=== PATIENT | male | born 1950 | race African-American/Black ===

== ENCOUNTER → 2017-09-17 | Outpatient (CLI) | payer MEDICARE, OTHER ==
[2017-09-17 17:32] LABS: ABSOLUTE BASOPHILS # (AUTO) 0.1 10^3/uL (0.0-0.2); ABSOLUTE LYMPHOCYTES (AUTO) 0.6 10^3/uL (0.5-4.7); ABSOLUTE MONOCYTES (AUTO) 0.8 10^3/uL (0.1-1.4); ABSOLUTE NEUT (AUTO) 4.6 10^3/uL (1.7-8.2); BASOPHILS % (AUTO) 1.3 % (0-2); EOSINOPHILS % (AUTO) 0.5 % (0-6); HEMATOCRIT 48.2 % (37.9-51.0); LYMPHOCYTES % (AUTO) 10.1 % (13-45); MEAN CORPUSCULAR HEMOGLOBIN 25.7 pg (27.0-33.4); MEAN CORPUSCULAR HGB CONC 33.1 g/dL (32.0-36.0); MEAN CORPUSCULAR VOLUME 78 fl (80-97); PLATELET COUNT 503 10^3/uL (150-450); RED CELL DISTRIBUTION WIDTH 18.5 % (11.5-14.0); SEGMENTED NEUTROPHILS % (AUTO) 75.1 % (42-78); TOTAL CELLS COUNTED % (AUTO) 100 %
[2017-09-17 17:41] LABS: ALANINE AMINOTRANSFERASE 53 U/L (21-72); ALKALINE PHOSPHATASE 82 U/L (38-126); ANION GAP 15 (5-19); ASPARTATE AMINO TRANSFERASE 50 U/L (17-59); BILIRUBIN,DIRECT 0.5 mg/dL (0.0-0.4); BILIRUBIN,TOTAL 0.8 mg/dL (0.2-1.3); BLOOD UREA NITROGEN 40 mg/dL (7-20); CALCIUM 9.4 mg/dL (8.4-10.2); CARBON DIOXIDE 24 mmol/L (22-30); CHLORIDE 97 mmol/L (98-107); GLUCOSE 99 mg/dL (75-110); POTASSIUM 5.8 mmol/L (3.6-5.0); SODIUM 136.4 mmol/L (137-145); TOTAL PROTEIN 7.3 g/dL (6.3-8.2)
[2017-09-17 18:18] LABS: ERYTHROCYTE SEDIMENTATION RATE 16 mm/hr (0-20)
[2017-09-17 18:31] LABS: WHITE BLOOD COUNT 6.1 10^3/uL (4.0-10.5)
== END ==
LOC: OD 16:18
PROVIDERS: ATTEND Family Medicine
DX: I10 Essential (primary) hypertension (principal); N28.9 Disorder of kidney and ureter, unspecified; R50.9 Fever, unspecified
CPT/HCPCS: 36415; 80053; 85025; 85652; 86038; 86430; 86701; 87040

== ENCOUNTER 2017-09-18 20:37 | Emergency (ER) | payer MEDICARE, OTHER ==
[2017-09-18] MEDS ORDERED: IPRATROPIUM/ALBUTEROL 0.5-2.5 MG/3 ML AMPUL NEB ONE (22:38)
[2017-09-18] MEDS ORDERED: DEXAMETHASONE SOD PHOS INJ 10 MG/1 ML VIAL IV ONE (22:38)
--- NOTE | 2017-09-18 22:40 | ER Document Report ---
ED General - General Chief Complaint: Shortness Of Breath Stated Complaint: SHORTNESS OF BREATH Time Seen by Provider: 09/18/17 22:19 TRAVEL OUTSIDE OF THE [place] IN LAST 30 DAYS: No - HPI Notes: Patient is a 67-year-old male who presents to the ED via EMS complaining of fever, chills, occasional dry nonproductive cough, intermittent shortness of breath with exertion 1.5 weeks. Patient states that he was evaluated a week ago and placed on an antibiotic which he cannot remember the name of. Patient states that he was also evaluated by his primary care doctor yesterday who took blood and blood cultures and set up an appointment for infectious disease tomorrow. Patient states that he started having fever and chills again today so he went to an urgent care and they saw a temperature of 103 so they sent him to the emergency department for further evaluation and management. Patient was given 1000 mg of Tylenol at that time. Patient states that he feels overall "okay." Patient was also noted to have an O2 saturation of 92% sweeps he was placed on 2 L of oxygen via nasal cannula. Patient denies any other significant cardio pulmonary medical history. He has a history of hypertension and gout. Patient is not on any blood thinners aside from a baby aspirin daily. He denies any smoking, IV drug use, diabetes, cancer, previous DVT/PE, hormone use, prolonged immobilization, recent trauma/surgery. Patient states that he is still eating and drinking without difficulties, but does have a decreased p.o. intake. He is urinating normally and having normal bowel movements. Patient had a temperature of 100.3 when vitals were taken by our nursing staff after arrival. Denies any drug allergies. Denies any headache, neck pain, changes in vision/speech/mentation/hearing, URI, sore throat, chest pain, palpitations, syncope, wheeze, dyspnea, abdominal pain, nausea/vomiting/ diarrhea, urinary retention, dysuria, hematuria, or rash. - Related Data Allergies/Adverse Reactions: No Known Allergies Allergy (Unverified 07/28/13 14:37) Past Medical History - Social History Smoking Status: Former Smoker Chew tobacco use (# tins/day): No Frequency of alcohol use: None Drug Abuse: None Family History: Reviewed & Not Pertinent Patient has suicidal ideation: No Patient has homicidal ideation: No - Past Medical History Cardiac Medical History: Reports: Hx Hypertension Denies: Hx Heart Attack Pulmonary Medical History: Denies: Hx Asthma Neurological Medical History: Denies: Hx Cerebrovascular Accident, Hx Seizures Renal/ Medical History: Denies: Hx Peritoneal Dialysis GI Medical History: Denies: Hx Hepatitis, Hx Hiatal Hernia, Hx Ulcer Infectious Medical History: Denies: Hx Hepatitis Past Surgical History: Denies: Hx Open Heart Surgery, Hx Pacemaker Review of Systems - Review of Systems -: Yes All other systems reviewed and negative Physical Exam - Vital signs Vitals: Resp Pulse Ox 19 96 09/18/17 20:44 09/18/17 20:44 - Notes Notes: PHYSICAL EXAMINATION: GENERAL: Well-appearing, well-nourished and in no acute distress. A&Ox4. Answers questions appropriately. HEAD: Atraumatic, normocephalic. EYES: Pupils equal round and reactive to light, extraocular movements intact, sclera anicteric, conjunctiva are normal. ENT: Nares patent and without discharge. oropharynx clear without exudates. No tonsilar hypertrophy or erythema. Moist mucous membranes. No sinus tenderness. NECK: Normal range of motion, supple without lymphadenopathy LUNGS: Breath sounds clear to auscultation bilaterally and equal. No wheezes rales or rhonchi. HEART: Regular rate and rhythm without murmurs, rubs, gallops. ABDOMEN: Soft, nontender, nondistended abdomen. No guarding, no rebound. No masses appreciated. Normal bowel sounds present. No CVA tenderness bilaterally. Musculoskeletal: FROM to passive/active. Strength 5+/5. Coni neg b/l. Extremities: No cyanosis, clubbing, or edema b/l. Peripheral pulses 2+. Capillary refill less than 3 seconds. NEUROLOGICAL: Cranial nerves grossly intact. Normal speech, normal gait. Normal sensory, motor exams PSYCH: Normal mood, normal affect. SKIN: Warm, Dry, normal turgor, no rashes or lesions noted. Course - Re-evaluation Re-evalutation: 09/19/17 00:36 Reviewed current labs and imaging with Dr. Mejia. Pt is perfusing at 94-98% on RA at this time. He has no new concerns or complaints. CBC shows a left shift. CMP shows CKD with Cr 1.72 (unknown previously to patient) GFR of 49. K+ of 5.7 w/o EKG changes. CXR shows small effusion left side. We will obtain a CTA of the chest to further evaluate. Fluids started. BC pending. Lactic acid/BNP unremarkable. Cardiac enzymes x2/EKG unremarkable. 09/19/17 03:20 CT showed probable pneumonia right lower lobe versus atelectasis, but patient's presentation lab work favors pneumonia at this time. Reviewed again with Dr. Mejia, we will start IV antibiotics at this time. Pt has maintained O2 >94% on RA and ambulated and maintained O2 on RA >95%. Patient is nontoxic- appearing and appears well overall. Patient has been given 2 L normal saline as well as an extra albuterol neb treatment. Rocephin and Zithromax IV started. Patient is tolerating p.o. without any difficulties. I did review this with our hospitalist, Dr. Wienstein, who advised that we are doing everything appropriately and based on his vitals and presentation that he can remain outpatient with f/u with Infectious Disease tomorrow. I did review this with the family and patient who are in agreement with this plan. Low suspicion for any ACS, pneumothorax, pericarditis, dissection, respiratory compromise, severe dehydration, sepsis, meningitis, or other systemic emergent condition at this time. Patient is aware that his condition can change from initial presentation and he needs to monitor symptoms closely and seek medical attention for any acute changes. Recommend conservative measures for symptoms. Recheck with your I.D. provider tomorrow as scheduled. Call your PCM tomorrow as well. Return to the ED with any worsening/concerning symptoms otherwise as reviewed in discharge. Patient is in agreement. 09/19/17 04:00 Pt has no new concerns or complaints. Antibiotics running. Plan for discharge at completion. Vitals acceptable. D/c instructions as above. - Vital Signs Vital signs: Temp Pulse Resp BP Pulse Ox 97.8 F 18 106/83 95 09/19/17 04:31 09/19/17 02:01 09/19/17 04:31 09/19/17 04:31 - Laboratory Result Diagrams: 09/18/17 20:45 09/18/17 20:45 Laboratory results interpreted by me: 09/18/17 09/18/17 09/18/17 20:45 20:45 20:45 RBC 6.22 H MCV 77 L MCH 25.3 L RDW 18.4 H Plt Count 578 H Seg Neuts % (Manual) 80 H Band Neutrophils % 10 H Lymphocytes % (Manual) 3 L Abs Lymphs (Manual) 0.2 L VBG pH 7.49 H VBG pCO2 26.1 L VBG HCO3 19.6 L Sodium 131.5 L Potassium 5.7 H Chloride 97 L Carbon Dioxide 21 L BUN 42 H Creatinine 1.72 H Est GFR ( Amer) 49 L Est GFR (Non-Af Amer) 40 L Glucose 112 H Direct Bilirubin 0.5 H Urine Ketones Urine Blood 09/18/17 23:07 RBC MCV MCH RDW Plt Count Seg Neuts % (Manual) Band Neutrophils % Lymphocytes % (Manual) Abs Lymphs (Manual) VBG pH VBG pCO2 VBG HCO3 Sodium Potassium Chloride Carbon Dioxide BUN Creatinine Est GFR ( Amer) Est GFR (Non-Af Amer) Glucose Direct Bilirubin Urine Ketones TRACE H Urine Blood SMALL H Discharge - Discharge Clinical Impression: Pneumonia Qualifiers: Pneumonia type: due to unspecified organism Laterality: right Lung location: lower lobe of lung Qualified Code(s): J18.1 - Lobar pneumonia, unspecified organism Condition: Stable Disposition: HOME, SELF-CARE Instructions: Pneumonia ([facility]) Additional Instructions: Maintain adequate fluid intake Take meds as directed tylenol/ibuprofen as needed over the counter cold medication as needed for symptoms Humidified air may help Wash your hands regularly Wear a mask when coughing F/u: With your infectious disease provider tomorrow as scheduled. Call your PCM as well tomorrow. Return to the ED with any fever, worsening pain, chest pain, palpitations, syncope, worsening LUGO, neck pain/stiffness, shortness of breath, wheezing, drooling, trouble swallowing/breathing, abdominal pain, n/v/d, rash, or worsening/concerning symptoms otherwise. Prescriptions: Levofloxacin [Levaquin 750 mg Tablet] 750 mg PO DAILY #5 tablet Referrals: HENRY GUILLERMO MD [Primary Care Provider] - Follow up tomorrow Disease, Infectious [Other] - Follow up tomorrow
[2017-09-18 22:42] LABS: VENOUS BLOOD BASE EXCESS -1.8 mmol/L; VENOUS BLOOD HCO3 19.6 mmol/L (20-32); VENOUS BLOOD PCO2 26.1 mmHg (35-63); VENOUS BLOOD PH 7.49 (7.30-7.42)
[2017-09-18 22:50] LABS: ALANINE AMINOTRANSFERASE 59 U/L (21-72); ALBUMIN 3.9 g/dL (3.5-5.0); ALKALINE PHOSPHATASE 97 U/L (38-126); ANION GAP 14 (5-19); ASPARTATE AMINO TRANSFERASE 51 U/L (17-59); BILIRUBIN,DIRECT 0.5 mg/dL (0.0-0.4); BILIRUBIN,TOTAL 0.8 mg/dL (0.2-1.3); BLOOD UREA NITROGEN 42 mg/dL (7-20); CALCIUM 9.4 mg/dL (8.4-10.2); CARBON DIOXIDE 21 mmol/L (22-30); CHLORIDE 97 mmol/L (98-107); GLUCOSE 112 mg/dL (75-110); HEMATOCRIT 48.1 % (37.9-51.0); HEMOGLOBIN 15.8 g/dL (13.5-17.0); MEAN CORPUSCULAR HEMOGLOBIN 25.3 pg (27.0-33.4); MEAN CORPUSCULAR HGB CONC 32.8 g/dL (32.0-36.0); MEAN CORPUSCULAR VOLUME 77 fl (80-97); PLATELET COUNT 578 10^3/uL (150-450); POTASSIUM 5.7 mmol/L (3.6-5.0); RED BLOOD COUNT 6.22 10^6/uL (4.35-5.55); RED CELL DISTRIBUTION WIDTH 18.4 % (11.5-14.0); SODIUM 131.5 mmol/L (137-145); TOTAL PROTEIN 7.1 g/dL (6.3-8.2); WHITE BLOOD COUNT 7.9 10^3/uL (4.0-10.5)
[2017-09-18 23:08] LABS: CREATINE KINASE MB 0.36 ng/mL (<4.55); TROPONIN I 0.016 ng/mL
[2017-09-18 23:10] LABS: ABSOLUTE LYMPHOCYTES# (MANUAL) 0.2 10^3/uL (0.5-4.7); ABSOLUTE MONOCYTES # (MANUAL) 0.4 10^3/uL (0.1-1.4); ABSOLUTE NEUTROPHILS# (MANUAL) 7.1 10^3/uL (1.7-8.2); BAND NEUTROPHILS % (MANUAL) 10 % (3-5); BASOPHILS % (MANUAL) 1 % (0-2); EOSINOPHILS % (MANUAL) 1 % (0-6); LYMPHOCYTES % (MANUAL) 3 % (13-45); MONOCYTES % (MANUAL) 5 % (3-13); SEGMENTED NEUTROPHILS % (MAN) 80 % (42-78); TOTAL CELLS COUNTED 100
[2017-09-18 23:11] LABS: ANISOCYTOSIS 1+
[2017-09-18 23:12] LABS: PLATELET COMMENT ADEQUATE; PLATELET LARGE PRESENT; TOXIC GRANULATION SLIGHT
[2017-09-18 23:19] LABS: APPEARANCE,URINE CLEAR; BILIRUBIN,URINE NEGATIVE (NEGATIVE); COLOR,URINE YELLOW; GLUCOSE, URINE NEGATIVE (NEGATIVE); KETONES,URINE TRACE mg/dL (NEGATIVE); LEUKOCYTE ESTERASE,URINE NEGATIVE (NEGATIVE); NITRITE,URINE NEGATIVE (NEGATIVE); PROTEIN,URINE NEGATIVE (NEGATIVE); URINE SPECIFIC GRAVITY 1.016; UROBILINOGEN,URINE NEGATIVE mg/dL (<2.0)
--- NOTE | 2017-09-19 00:18 | RADIOLOGY REPORT (SQ) ---
EXAM DESCRIPTION: CHEST 2 VIEWS CLINICAL HISTORY: 67 years Male, cough, fever COMPARISON: None. NUMBER OF VIEWS/TECHNIQUE: 2, PA and Lateral LIMITATIONS: None. FINDINGS: Normal lung volume and small right middle lobar and left basilar atelectasis or scar. Small blunting-effusion of the left costophrenic angle. Prominent interstitium. Normal cardiac silhouette. Intact bony thorax. IMPRESSION: Small atelectasis-scar. Possible small left effusion.
[2017-09-19] MEDS ORDERED: NORMAL SALINE 1000 ML 1,000 ML IV ONE ×2 (00:27→02:12)
--- NOTE | 2017-09-19 02:20 | RADIOLOGY REPORT (SQ) ---
EXAM DESCRIPTION: CTA CHEST CLINICAL HISTORY: 67 years Male, EW[place], intermittent fever COMPARISON: CR, same day. TECHNIQUE: IV contrast. Multiplanar reformat. This exam was performed according to our departmental dose-optimization program, which includes automated exposure control, adjustment of the mA and/or kV according to patient size and/or use of iterative reconstruction technique. FINDINGS: There is inadequate enhancement of the pulmonary arterial system measuring 154 HU significantly decreasing sensitivity of this exam. There is nonspecific prominence of the right ventricle. CTA appearance of the thoracic aorta is normal. Moderate bandlike opacity of the right lower lobe may indicate atelectasis or pneumonia. Small bilateral lower lobar and left basilar atelectasis/scar. Mild/moderate splenomegaly partially imaged. Small calcified granuloma in the right midlung field. Inferior neck, axillae, mediastinum, airway, lymphatics, upper abdomen, and musculoskeleton appear otherwise unremarkable. IMPRESSION: 1. There is inadequate enhancement of the pulmonary arterial system significantly decreasing sensitivity of this exam. There is nonspecific prominence of the right ventricle. Recommend repeat, alternative, or surveillance investigation. 2. Bandlike opacity of the right lower lobe may indicate atelectasis or pneumonia. 3. Splenomegaly.
[2017-09-19] MEDS ORDERED: CEFTRIAXONE 1 GM/D5W RTU 1 GM/50 ML RTUPB IV ONE (02:26)
[2017-09-19] MEDS ORDERED: AZITHROMYCIN INJ 500 MG VIAL IV ONE (02:26)
[2017-09-19] MEDS ORDERED: ALBUTEROL SULFATE 0.083% NEB 2.5 MG/3 ML AMPUL NEB ONE (02:27)
[2017-09-19] MEDS ORDERED: SODIUM POLYSTYRENE SULFONATE 15 GM/60 ML PO ONE (02:27)
[2017-09-19] MEDS ORDERED: CEFTRIAXONE INJ 1000 MG VIAL ONE (03:53)
[2017-09-19 04:37] VITALS: BP 106/83
--- NOTE | 2017-09-19 07:55 | EKG REPORT ---
SEVERITY:- NORMAL ECG - SINUS RHYTHM : Confirmed by: Ramiro rAmas MD 19-Sep-2017 07:54:38
== END 2017-09-19 04:45 | disposition home or self-care (01) ==
LOC: ER 20:37
DX: J18.1 Lobar pneumonia, unspecified organism (principal); I12.9 Hypertensive chronic kidney disease with stage 1 through stage 4 chronic kidney disease, or unspecified chronic kidney disease; N18.9 Chronic kidney disease, unspecified; R06.02 Shortness of breath; R05 Cough; Z79.82 Long term (current) use of aspirin; Z87.891 Personal history of nicotine dependence
CPT/HCPCS: 93005; 94640 ×2; 99285; 96361; 96375; 96365; 96367; 36415; 87040; 82553; 82550; 85025; 80053; 81001; 84484; 82803; 83605; 83880; 71046; 71275; 93010; J0696; J7030; J0456; J1100; A9270 ×2; J7620

== ENCOUNTER → 2017-10-14 | Outpatient (CLI) | payer MEDICARE, OTHER ==
[2017-10-14 12:29] LABS: ANION GAP 10 (5-19); BLOOD UREA NITROGEN 15 mg/dL (7-20); CARBON DIOXIDE 28 mmol/L (22-30); CHLORIDE 104 mmol/L (98-107); GLUCOSE 92 mg/dL (75-110); POTASSIUM 5.2 mmol/L (3.6-5.0); SODIUM 142.2 mmol/L (137-145); URIC ACID 4.5 mg/dL (3.5-8.5)
[2017-10-14 12:30] LABS: APPEARANCE,URINE CLEAR; BILIRUBIN,URINE NEGATIVE (NEGATIVE); COLOR,URINE YELLOW; GLUCOSE, URINE NEGATIVE (NEGATIVE); KETONES,URINE NEGATIVE (NEGATIVE); LEUKOCYTE ESTERASE,URINE NEGATIVE (NEGATIVE); NITRITE,URINE NEGATIVE (NEGATIVE); PROTEIN,URINE NEGATIVE (NEGATIVE); URINE SPECIFIC GRAVITY 1.018; UROBILINOGEN,URINE NEGATIVE mg/dL (<2.0)
[2017-10-15 11:19] LABS: HEMATOCRIT 44.4 % (37.9-51.0); HEMOGLOBIN 14.4 g/dL (13.5-17.0); MEAN CORPUSCULAR HEMOGLOBIN 26.7 pg (27.0-33.4); MEAN CORPUSCULAR HGB CONC 32.5 g/dL (32.0-36.0); PLATELET COUNT 412 10^3/uL (150-450); RED CELL DISTRIBUTION WIDTH 24.5 % (11.5-14.0); WHITE BLOOD COUNT 4.5 10^3/uL (4.0-10.5)
[2017-10-15 11:44] LABS: MEAN CORPUSCULAR VOLUME 82 fl (80-97)
== END ==
LOC: OD 10:59
PROVIDERS: ATTEND Internal Medicine Nephrology
DX: I12.9 Hypertensive chronic kidney disease with stage 1 through stage 4 chronic kidney disease, or unspecified chronic kidney disease (principal); N18.3 Chronic kidney disease, stage 3 (moderate)
CPT/HCPCS: 36415; 80048; 81001; 84550; 85027